=== PATIENT | female | born 1950 | race Caucasian/White ===

== ENCOUNTER 2020-01-25 13:18 | Emergency (ER) | payer MEDICARE, SELFPAY ==
--- NOTE | ~2020-01-25 | XR_ITS ---
XR shoulder RT min 2V 01/25/2020 14:13 Indication: Right shoulder pain. No acute injury. Procedure: 5 views right shoulder Comparison: No prior studies for comparison. Findings: There is moderate osteoarthritis of the glenohumeral joint. No acute fracture or traumatic malalignment. Surrounding osseous structures and soft tissues are unremarkable. Impression: 1: Moderate right glenohumeral joint osteoarthritis. Reviewed, dictated and finalized at location A. Impression: 1: Moderate right glenohumeral joint osteoarthritis.
[2020-01-25 13:27] VITALS: BP 144/82; PULSE 63; RESP 16; TEMP 36.7; O2SAT 96
--- NOTE | 2020-01-25 14:29 | ED.GENADULT ---
HPI - General Adult General Chief complaint: Extremity Injury, Upper Stated complaint: right shoulder pain Time Seen by Provider: 01/25/20 14:29 Source: patient and RN notes reviewed Mode of arrival: ambulatory Limitations: no limitations History of Present Illness HPI narrative: 69-year-old female presents with complaints of right shoulder pain and intermittent swelling for the past 1.5 weeks. Aleve last on 01/23/20 and Aspirin last on 2 days ago. Denies taking Ibuprofen. Pain intermittently radiates into RT lower neck, none at this time. 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 Denies numbness or tingling. No known injury. History of arthritis and receiving steroid injections into shoulder for relief. Hurts with movement of shoulder. No loss of mobility. Exacerbating factor is movement. Relieving factor is rest and pain medication at times. The dominant hand is the RIGHT HAND. Redness to RT arm which has increased over the past 24 hours. Skin irritation and itching without drainage or burning. Remains active. The patient reports she have not been diagnosed with COVID-19. The patient reports she is not waiting for the results of a COVID-19 lab test. The patient reports she do not have fever, chills, weakness, or fatigue. The patient reports she do not have a new or worsening cough or shortness of breath. Denies chest pain. The patient reports she do not have any rhinorrhea, congestion, sore throat, loss of taste, nausea, vomiting, abdominal pain, and diarrhea. Tolerating po intake well. Denies recent traveling. Denies concerns for COVID-19 or exposures been home with limited outdoor exposure except for essential household needs, work, and return home. At this time, patient is not suspected of having COVID-19. Some parts of this dictation were generated by voice recognition software and may contain typographical and/or grammatical inaccuracies. Related Data Home Medications Medication Instructions Recorded Confirmed fluoxetine 40 mg PO DAILY 01/25/20 01/25/20 hydrocodone-acetaminophen 1 tab/kg PO BID PRN 01/25/20 01/25/20 pravastatin 20 mg PO DAILY 01/25/20 01/25/20 Allergies Allergy/AdvReac Type Severity Reaction Status Date / Time No Known Allergies Allergy Verified 01/25/20 14:42 Review of Systems Review of Systems: Narrative: CONSTITUTIONAL: Denies fever, chills, sweats. EYES: Denies visual changes, redness, discharge. ENT: Denies rhinorrhea, congestion, sore throat, otalgia. CARDIOVASCULAR: Denies chest pain, palpitations, edema. RESPIRATORY: Denies dyspnea, wheezing, cough. GASTROINTESTINAL: Denies abdominal pain, nausea, vomiting, diarrhea. GENITOURINARY: Denies dysuria, hematuria, abnormal discharge. SKIN: Denies rash or drainage. Complains of skin irritation, redness, itching. MUSCULOSKELETAL: Denies acute back pain or myalgia. Complains of RT shoulder pain and swelling. NEUROLOGIC: Denies numbness or focal weakness. PSYCHIATRIC: Denies anxiety or depression. All other systems reviewed & are unremarkable except as noted in HPI and below. [facility] Past Medical History Medical History (Updated 01/26/20 @ 00:00 by Background Daemon) Anxiety Arm fracture, right Arthritis Back pain Depression Heel fracture Hypercholesteremia Interstitial cystitis Skin cancer (melanoma) Surgical History Surgical History (Updated 01/25/20 @ 14:46 by LANCE Mackenzie) History of dilation and curettage History of knee surgery Family History Family History (Updated 01/25/20 @ 14:47 by LANCE Mackenzie) Father Heart disease Diabetes mellitus Mother Alive and well Social History Social History (Updated 01/25/20 @ 14:48 by LANCE Mackenzie) Smoking status: Never smoker Tobacco type: cigarettes Second hand tobacco smoke exposure: No Alcohol intake: former Alcohol use details: stopped 2005 Subst
[2020-01-25] MEDS: KETOROLAC (*BKC) 60 MG/2 ML VIAL IM (14:47)
== END 2020-01-25 15:06 | disposition home or self-care (01) ==
PROVIDERS: Emergency Provider Nurse Practitioner Family; PCP Internal Medicine
DX: M25.511 Pain in right shoulder (principal); L03.113 Cellulitis of right upper limb; Z85.828 Personal history of other malignant neoplasm of skin
CPT/HCPCS: 73030; 96372; 99213; G0463; J1885

== ENCOUNTER 2020-06-27 11:14 | Emergency (ER) | payer MEDICARE, SELFPAY ==
--- NOTE | ~2020-06-27 | XR_ITS ---
XR chest 2V DATE: 06/27/2020 11:51 INDICATION: Pain under right breast. Cough. TECHNIQUE: 2 views COMPARISON: None FINDINGS: Heart size is borderline. No hilar or mediastinal enlargement. Prominent right cardiophreni c fat pad. Minimal bilateral apical capping. No pulmonary infiltrate or consolidation, pleural effusion or pulmo nary vascular congestion or pneumothorax is detected. Diffuse idiopathic skeletal hyperostosis of the thoracic spine. Degenerative spurring of the lumbar s pine. Diffuse osteopenia. IMPRESSION: No active pulmonary disease Reviewed, dictated and finalized at location A. VANCE COORDINATOR IMPRESSION: No active pulmonary disease
--- NOTE | 2020-06-27 11:20 | ED.GENADULT ---
HPI - General Adult General Chief complaint: Chest Pain Stated complaint: Chest/Breast Pain that's Radiating Time Seen by Provider: 06/27/20 11:20 Source: patient Mode of arrival: ambulatory Limitations: no limitations History of Present Illness HPI narrative: 70-year-old female patient presents to the [facility] with complaints of left-sided chest pain that goes from underneath the left breast that radiates up to the left neck. Patient states that she has had this pain now for about 4 days and is pretty constant. Patient states that the pain did get worse last night which is why she came in today. Patient rates her pain at this time 6 out of 10. Patient does admit to a little bit of shortness of breath as well. Patient states she has been struggling with some type of upper respiratory infection since the end of May. Patient states she had the symptoms for about a week and was tested for Covid with the PCR and came back negative. Patient saw her primary doctor on June was given a Z-Alex. Patient states it did help her cough a little bit and states it did help her symptoms a little bit but she never felt fully better. Patient states that she did not actually see her doctor they just prescribed her something over the phone. Patient states that she also was given some Tessalon Perles. Patient states her cough has improved. Patient states she is also had a little bit of diarrhea but denies any abdominal pain, nausea or vomiting. Patient states she did take a Carlito aspirin last night for her pain but denies take anything else for her pain today Related Data Home Medications Medication Instructions Recorded Confirmed fluoxetine 40 mg PO DAILY 01/25/20 01/25/20 hydrocodone-acetaminophen 1 tab/kg PO BID PRN 01/25/20 01/25/20 pravastatin 20 mg PO DAILY 01/25/20 01/25/20 Allergies Allergy/AdvReac Type Severity Reaction Status Date / Time No Known Allergies Allergy Verified 06/27/20 11:44 Review of Systems Review of Systems: Narrative: CONSTITUTIONAL: Denies fever, chills, or sweats. EYES: Denies visual changes, redness, or discharge. ENT: Denies rhinorrhea, congestion, sore throat, or otalgia. CARDIOVASCULAR: Positive left-sided chest pain that radiates to the left lateral neck, denies palpitations, or edema. RESPIRATORY: Positive cough with dyspnea. GASTROINTESTINAL: Denies abdominal pain, nausea, vomiting, positive diarrhea. GENITOURINARY: Denies dysuria or hematuria. SKIN: Denies rash or itching. MUSCULOSKELETAL: Denies back pain, joint pain, or myalgia. NEUROLOGIC: Denies headache, numbness, or weakness. PSYCHIATRIC: Denies anxiety or depression. [facility] Past Medical History Medical History (Updated 06/27/20 @ 12:04 by LANCE Barrientos) Anxiety Arm fracture, right Arthritis Back pain Depression Heel fracture Hypercholesteremia Interstitial cystitis Skin cancer (melanoma) Surgical History Surgical History (Updated 06/27/20 @ 11:30 by LANCE Barrientos) H/O abdominal surgery bladder removed History of dilation and curettage History of knee surgery Family History Family History Father Heart disease Diabetes mellitus Mother Alive and well Social History Social History Smoking status: Never smoker Tobacco type: cigarettes Second hand tobacco smoke exposure: No Alcohol intake: former Substance use: never Gender identity (if verbalized by the patient): Female Comments At the time of my signature I agree with nursing past medical history, surgical, social, and family history. There is no relevant family history pertinent to the presenting complaint. Exam Narrative: Exam Narrative: GENERAL: Well-appearing, well-nourished, and in no acute distress. HEAD: Normocephalic, atraumatic. EYES: PERRLA and EOMI. ENT: Nares clear, no rhinorrhea or epistaxis. Mucous
[2020-06-27 11:27] VITALS: BP 170/87; PULSE 93; RESP 18; TEMP 36.3; O2SAT 100
--- NOTE | 2020-06-27 11:34 | ECG_ITS ---
Measurements Intervals [place] [address] Rate: 61 P: 5 ND: 168 QRS: 38 QRSD: 93 T: 78 QT: 415 QTc: 418 Interpretive Statements SINUS RHYTHM BORDERLINE ST-T WAVE ABNORMALITY- ANTEROLAT/HIGH LAT LEADS BASELINE ARTIFACT- I, II, III, AVR, AVF BORDERLINE ECG Electronically Signed On 06-27-2020 13:02:12 WET MACHINE TENDER by Bernard Bentley D.O.
== END 2020-06-27 12:09 | disposition home or self-care (01) ==
PROVIDERS: Emergency Provider Nurse Practitioner Family; PCP Internal Medicine
DX: R09.1 Pleurisy (principal); Z20.822 Contact with and (suspected) exposure to COVID-19; M19.90 Unspecified osteoarthritis, unspecified site; E78.00 Pure hypercholesterolemia, unspecified; F32.9 Major depressive disorder, single episode, unspecified; Z85.820 Personal history of malignant melanoma of skin
CPT/HCPCS: 71046; 87081; 87426; 87880; 93005; 99213; C9803; G0463

== ENCOUNTER 2023-08-23 10:11 | Outpatient (CLI) | payer MEDICARE, MEDICAID, SELFPAY ==
--- NOTE | ~2023-08-23 | XR_ITS ---
Lumbosacral Spine: AP and lateral views Clinical History: Pain Findings: The normal lordotic curve is maintained. No fracture or subluxation evident. There is sever e facet arthropathy throughout the lumbar spine. There is moderate to severe degenerative disc narrow ing throughout the lumbar spine. No instability evident on flexion or extension. The sacroiliac joint s are normally outlined. Impression: Advanced degenerative spondylosis of the lumbar spine. Reviewed, dictated and finalized at location M. Impression: Advanced degenerative spondylosis of the lumbar spine.
== END 2023-08-23 10:12 | disposition home or self-care (01) ==
PROVIDERS: PCP Internal Medicine; Visit Provider Neurological Surgery
DX: M47.816 Spondylosis without myelopathy or radiculopathy, lumbar region (principal)
CPT/HCPCS: 72110

== ENCOUNTER 2023-09-20 12:22 | Outpatient (CLI) | payer MEDICARE, MEDICAID, SELFPAY ==
--- NOTE | 2023-09-20 12:43 | ECG_ITS ---
SEE SCANNED COPY FOR CONFIRMED REPORT MTDD
[2023-09-20 13:32] LABS: Color Urine Yellow (Yellow)
[2023-09-20 13:33] LABS: Add Urine Microscopic? YES; Appearance Urine Cloudy (Clear); Bilirubin Urine Negative (Negative); Blood Urine 1+ (Negative); Glucose Urine UA Negative (Negative); Ketones Urine Negative (Negative); Leukocyte Esterase Ur Negative LEU/UL (Negative); Nitrate Urine Negative (Negative); Protein Urine Negative (Negative); Urobilinogen Urine 0.2 mg/dL (0.2-1.0); pH Urine 6.5 (5.0-8.0)
[2023-09-20 13:39] LABS: Anion Gap 6 mmol/L (4-12); Blood Urea Nitrogen 18 mg/dL (7-17); Calcium 9.6 mg/dL (8.4-10.2); Carbon Dioxide 27 mmol/L (22-30); Chloride 107 mmol/L (98-107); Estimated Glomerular Filt Rate > 60; Glucose 83 mg/dL (65-110); Potassium 3.8 mmol/L (3.4-5.0); Prothrombin Time 13.3 Seconds (11.1-14.7); Sodium 140 mmol/L (137-145)
[2023-09-20 13:40] LABS: Partial Thromboplastin Time 30.5 Seconds (22.3-36.8)
[2023-09-20 13:45] LABS: Mucus Urine Present /lpf; Squamous Epithelial Cell Urine Few /hpf (Few); WBC Clumps Urine Present /hpf; WBC Urine 21-30 /hpf (0-3)
[2023-09-20 13:50] LABS: Hematocrit 40.9 % (37.0-47.0); Hemoglobin 12.7 g/dL (12.0-15.0); Mean Corpuscular HGB Conc 31.1 g/dl (32-36); Mean Corpuscular Volume 96.5 fl (80-100); Mean Platelet Volume 10.3 fl (7.4-10.4); Platelet Count Result 203 k/mm3 (150-375); Red Blood Count 4.24 M/mm3 (4.2-5.4); White Blood Count 5.8 K/mm3 (4.5-10.0)
== END 2023-09-20 12:23 | disposition home or self-care (01) ==
LOC: ANHSURGERY 12:29
PROVIDERS: PCP Internal Medicine; Visit Provider Neurological Surgery
DX: Z01.818 Encounter for other preprocedural examination (principal); M54.16 Radiculopathy, lumbar region; E78.00 Pure hypercholesterolemia, unspecified
CPT/HCPCS: 36415; 80048; 81001; 85027; 85610; 85730; 87086; 87088; 93005

== ENCOUNTER 2023-09-26 00:47 | Day surgery (SDC) | payer MEDICARE, MEDICAID, SELFPAY ==
--- NOTE | 2023-09-17 09:41 | PC.NURSE ---
Report to the Outpatient Waiting Room, entrance under the green pavilion located off [facility], at time __7:30 AM on date ___09/26/23____. Planned Procedure Time: _9:30 AM . Time changes happen often and if your time is changed the preop area will call you the afternoon before. - You and your visitor will be asked to self-screen and do not enter if you have any COVID symptoms. - A mask is optional within the hospital at this time. Patients may have clear liquids (water, carbonated beverages, clear teas, apple juice) until 3 hours prior to surgery( 6:30 AM) with a maximum of 20 ounces. - No food from midnight until time of surgery - Infants may have breast milk until 4 hours before surgery, infant formula 6 hours prior to surgery. - Children will be allowed to drink immediately following surgery. If applicable, please bring a bottle or sippy cup to assist with drinking. Juice, water, soda, and popsicles are readily available. For infants on formula, please bring formula the day of surgery. Pacifiers are allowed. Take the following medications with a SIP of water the morning of surgery: __BUPROPION,FLUOXETINE AND HYDROCODONE IF NEEDED FOR PAIN DO NOT STOP ANY OF YOUR OTHER PRESCRIPTION MEDICATIONS PRIOR TO SURGERY ?EXCEPT THE FOLLOWING Medications to discontinue per physician ____ALL VITAMINS 3 DAYS PRE OP .LAST DOSE 09/22/23 Please no make-up, nail paraguayan, hairspray, perfume, deodorant, or body powder the day of surgery. No jewelry (including any body piercings) or valuables the day of surgery, leave them at home. Please take a shower or bath the night before, or the morning of, surgery with an antibacterial soap. Wear comfortable, loose fitting clothing. Children are encouraged to wear pajamas. - Jewelry must be removed prior to entering the operating room. Rings and piercings that are not removed may be cut off. - The hospital will not accept responsibility for valuables. - Please leave all valuables, including medications, at home the day of surgery. If you are going home after surgery, a licensed fleet driver must drive you home. - NO public transportation without another adult if you receive anesthesia. - We recommend that an adult stay with you for 24 hours following discharge. - We also recommend that you do not drive, make important decision, drink alcoholic beverages, or take any drugs that were not prescribed by your health care provider for at least 24 hours after your discharge time. Follow any additional instructions given to you from your surgeon. If you or anyone in your household have experienced Covid symptoms in the past week, please notify your surgeon or the nurse liaison at the phone number below for possible testing. Telephone instructions given to ___PATIENT and asked if any additional questions and then verbalized understanding. Patient advised to call surgeon office or pre surgery nurse liaison [phone] if any additional questions.
[2023-09-17 09:58] VITALS: BMI 35.8
[2023-09-26] VITALS (17 sets, daily range): BP systolic 108–162; BP diastolic 48–96; PULSE 66–90; RESP 11–18; TEMP 36.1–36.2; O2SAT 91–100; BMI 35.2
--- NOTE | ~2023-09-26 | XR_ITS ---
EXAMINATION: XR fluoroscopy no charge DATE: 09/26/2023 11:56 INDICATION: Lumbar laminectomy. TECHNIQUE: 2 intraoperative fluoroscopic views of lumbar spine were obtained. I was not present. Fluo roscopy exposure time was 9 seconds. COMPARISON: Lumbar spine radiographs 08/23/2023. FINDINGS: There is severe lumbar spondylosis. An instrument overlies the posterior elements at L5-S1. IMPRESSION: 1. Severe lumbar spondylosis. Reviewed, dictated and finalized at location E.
[2023-09-26] MEDS: LACTATED RINGERS 1,000 ML 30 ML IV CONT ×2 (06:50→12:11)
--- NOTE | 2023-09-26 07:47 | WPDANESEPPF ---
Anes - Initial Pre Proc Eval Procedure: Operation Date: 09/26/23 08:30 Proposed Procedures p L3-L4, L4- L5, L5- S1 Lumbar Laminectomy - Senait Atkins MD Date/Time: 09/26/23 07:47 Surgeon: Senait Atkins MD Pre Op Diagnosis: lumbar radiculopathy Patient Data Age: 73 Gender: F Height: 1.65 m Weight: 96.1 kg Last Vital Signs Temp 97.2 F L 09/26/23 06:10 Pulse 66 09/26/23 06:10 Resp 16 09/26/23 06:10 BP 162/84 H 09/26/23 06:10 Pulse Ox 95 09/26/23 06:10 O2 Del Method Room Air 09/26/23 06:10 Allergies Allergy/AdvReac Type Severity Reaction Status Date / Time No Known Allergies Allergy Verified 09/26/23 07:08 Home Medications Medication Instructions Recorded Confirmed Type fluoxetine 40 mg capsule 40 mg PO DAILY 01/25/20 09/26/23 History hydrocodone 5 mg-acetaminophen 325 1 tablet PO BID PRN Pain 01/25/20 09/17/23 History mg tablet pravastatin 20 mg tablet 20 mg PO DAILY 01/25/20 09/17/23 History bupropion HCl 150 mg 24 hr tablet, 150 mg PO DAILY 02/22/23 09/17/23 History extended release buspirone 10 mg tablet 10 mg PO BID PRN DEPRESSION 02/22/23 09/26/23 History oxybutynin chloride 5 mg tablet 5 mg PO BID 02/22/23 09/17/23 History acetaminophen 500 mg capsule 1,000 mg PO Q6H PRN Pain 09/17/23 09/17/23 History cholecalciferol (vitamin D3) 125 125 mcg PO DAILY 09/17/23 09/26/23 History mcg (5,000 unit) tablet Patient hx anesthesia problems: none Family hx anesthesia problems: none Results Review: All pre-operative results and documents have been reviewed as part of the pre-operative evaluation. [facility] Past Medical History Medical History Anxiety Arm fracture, right Arthritis Back pain Depression Heel fracture Hypercholesteremia Interstitial cystitis Skin cancer (melanoma) Surgical History Surgical History H/O abdominal surgery bladder removed History of dilation and curettage History of knee surgery Family History Family History Father Heart disease Diabetes mellitus Malignant neoplasm of prostate Bladder cancer Other Depression Hypertension TIA (transient ischemic attack) Social History Social History Smoking status: Never smoker Tobacco type: cigarettes Second hand tobacco smoke exposure: No Alcohol intake: former Alcohol use details: stopped 2005 Substance use: never Do You Feel Safe in your Home?: Yes Lack of Transportation: No Lack of Food: Never True Current Housing: I Have Housing Concerned About Future Housing: No Difficulty Paying Gas/Electric Bills: No Difficulty Paying for Meds: No Currently Unemployed: YES Education: High School Diploma/GED Difficulty w/ Childcare or Family Care: No Living arrangements: alone Occupation/Education: occupation Gender identity (if verbalized by the patient): Female Spiritual care concerns: No Anes - Eval Final PreProcedure Day of Procedure 09/26/23 07:47 Patient weight: obese Heart: regular rate and rhythm Lungs: clear to auscultation Airway: Mallampati scale class III Neurological: alert and oriented Last oral intake: >/= 8 hours ASA classification: III (have glide scope in the room) Emergent: no Anesthetic plan: proceed Anesthesia type and monitoring: general ETT and standard monitoring Results Review: All pre-operative results and documents have been reviewed as part of the pre-operative evaluation. Informed Consent: The patient's anesthetic plan and its attendant risks and benefits were discussed with the patient/family/POA. Questions were solicited and answers provided to the satisfaction of the patient/family/POA.
--- NOTE | 2023-09-26 08:16 | WPDHPUPDATE1 ---
History and Physical Update Update Date/Time: 09/26/23 08:16 History and Physical has been reviewed, including an updated exam of the patient. There are NO changes in the patient's condition. Risks, benefits, and alternatives have been discussed and questions answered. Patient agrees to proceed with procedure.
--- NOTE | 2023-09-26 08:16 | PM.IMHP ---
H&P: HPI History of Present Illness Date/Time: 09/26/23 08:16 Chief Complaint: neurogenic claudication Narrative: From 02/22: Ms. Dubose is a 72-year-old female with history of interstitial cystitis, osteoarthritis, depression who was referred by [facility] for evaluation of low back pain.? The patient reports a very long history of low back pain starting when she gave to her 2nd child over 40 years ago.? She has pain that radiates to the right hip.? Pain is constant and worsens with sitting, lifting, bending, or doing chores like vacuuming.? She denies any radicular pain or paresthesias into the legs.? She does report some issues with balance. ? she currently takes hydrocodone for pain.? She had physical therapy last in 2018.? She has been following at [facility] and has had a number of injections including right L4-5 transforaminal injection, bilateral L5 transforaminal injections, midline L5-S1 epidural steroid injection, and a right SI joint injection, all varying degrees improvement.? [facility] is discussing the possibility of medial branch blocks next, and the patient has an appointment in a few weeks to discuss this. She notably had a cystectomy in 1998 for interstitial cystitis.? She reports some issues with balance for which she has been using a cane.? She reports having an MRI cervical spine within the last few years due to concern for her balance and hyperreflexia.? She does not know the results of this study but was similarly not referred to anyone for evaluation of her neck. From 07/18: ? Since her last visit, she did 6 weeks of physical therapy which she did not find particularly helpful.? She had 2 medial branch blocks which gave her significant improvement in her back pain temporarily, but she felt that the ablation actually worsened her pain.? Since I saw her last, she has developed a radicular pain into the left hip down the front of the leg to the midcalf.? She feels like her left leg is going to give out when walking.? She has paresthesias in a similar distribution.? She continues to have pain on the right side her back.? She has started walking with a cane due to the issues with her leg.? She notably is taking hydrocodone 5 mg twice a day at this point for her pain. She saw her orthopedist recently for her left hip and knee who obtained xrays and ultimately did not feel that these were the sources of her problem. From 08/22: ? She denies any significant changes since her last visit.? She continues to have fairly significant pain radiating into the hip and down the front of the leg to the ankle. Review of Systems Review of Systems: All systems reviewed & are unremarkable except as noted in HPI and below PMFSH Past Medical History Medical History Anxiety Arm fracture, right Arthritis Back pain Depression Heel fracture Hypercholesteremia Interstitial cystitis Skin cancer (melanoma) Surgical History Surgical History H/O abdominal surgery bladder removed History of dilation and curettage History of knee surgery Family History Family History Father Heart disease Diabetes mellitus Malignant neoplasm of prostate Bladder cancer Other Depression Hypertension TIA (transient ischemic attack) Social History Social History Smoking status: Never smoker Tobacco type: cigarettes Second hand tobacco smoke exposure: No Alcohol intake: former Alcohol use details: stopped 2005 Substance use: never Do You Feel Safe in your Home?: Yes Lack of Transportation: No Lack of Food: Never True Current Housing: I Have Housing Concerned About Future Housing: No Difficulty Paying Gas/Electric Bills: No Difficulty Paying for Meds: No Currently Unemployed: YES Education: High School Diplo
--- NOTE | 2023-09-26 08:16 | WPDURCON ---
Urology Consult Note HPI Date Seen: 09/26/23 Requesting Physician: Senait Atkins MD Primary Care Provider: Prachi Hunt, Consult Narrative Narrative: Tova Dubose is a 73 year old female who is scheduled for outpatient surgery today. Received call from pre-op regarding need for mtz catheterization. Patient has history of interstitial cystitis and underwent sigmoid augmentation cystoplasty in 1998. Reviewed patients office visit notes and surgical history with Dr. Swift. With this information, it is okay to proceed with mtz catheter placement for scheduled surgery. Informed nursing staff. Please call with any questions or concerns. FORMERLY [facility], [facility] Past Medical History Medical History (Reviewed 08/23/23 @ 09:21 by Roberta Flores [facility]) Anxiety Arm fracture, right Arthritis Back pain Depression Heel fracture Hypercholesteremia Interstitial cystitis Skin cancer (melanoma) Surgical History Surgical History H/O abdominal surgery bladder removed History of dilation and curettage History of knee surgery Family History Family History Father Heart disease Diabetes mellitus Malignant neoplasm of prostate Bladder cancer Other Depression Hypertension TIA (transient ischemic attack) Social History Social History (Reviewed 08/23/23 @ 09:21 by Roberta Flores [facility]) Smoking status: Never smoker Tobacco type: cigarettes Second hand tobacco smoke exposure: No Alcohol intake: former Alcohol use details: stopped 2005 Substance use: never Do You Feel Safe in your Home?: Yes Lack of Transportation: No Lack of Food: Never True Current Housing: I Have Housing Concerned About Future Housing: No Difficulty Paying Gas/Electric Bills: No Difficulty Paying for Meds: No Currently Unemployed: YES Education: High School Diploma/GED Difficulty w/ Childcare or Family Care: No Living arrangements: alone Occupation/Education: occupation Gender identity (if verbalized by the patient): Female Spiritual care concerns: No Meds Home Medications and Allergies Home Medications Medication Instructions Recorded Confirmed Type fluoxetine 40 mg capsule 40 mg PO DAILY 01/25/20 09/26/23 History hydrocodone 5 mg-acetaminophen 325 1 tablet PO BID PRN Pain 01/25/20 09/17/23 History mg tablet pravastatin 20 mg tablet 20 mg PO DAILY 01/25/20 09/17/23 History bupropion HCl 150 mg 24 hr tablet, 150 mg PO DAILY 02/22/23 09/17/23 History extended release buspirone 10 mg tablet 10 mg PO BID PRN DEPRESSION 02/22/23 09/26/23 History oxybutynin chloride 5 mg tablet 5 mg PO BID 02/22/23 09/17/23 History acetaminophen 500 mg capsule 1,000 mg PO Q6H PRN Pain 09/17/23 09/17/23 History cholecalciferol (vitamin D3) 125 125 mcg PO DAILY 09/17/23 09/26/23 History mcg (5,000 unit) tablet Allergies Allergy/AdvReac Type Severity Reaction Status Date / Time No Known Allergies Allergy Verified 09/26/23 07:08 Vital Signs Vital Signs - 24 hr 09/26/23 06:10 Temperature 97.2 F L Pulse Rate 66 Respiratory Rate 16 Blood Pressure 162/84 H Pulse Oximetry 95 Oxygen Delivery Room Air
[2023-09-26] MEDS: ceFAZolin 2 GM/D5W 50 ML 2 GM/50 ML BAG IVPB ×2 (08:34→17:41)
[2023-09-26] MEDS: BUPIVACAINE/EPINEPHRINE 0.5% 10 ML VIAL 30 ML INFILTRATE (09:09)
--- NOTE | 2023-09-26 10:27 | SUR.OPER ---
patient position maintained. Reyes draining yellow clear u/a.
--- NOTE | 2023-09-26 11:33 | SUR.OPER ---
EBL 300ML
--- NOTE | 2023-09-26 12:11 | P.OPB_ITS ---
Procedure Note - Brief Procedure Note - Brief Date of procedure: 09/26/23 lumbar radiculopathy Post-op diagnosis: Same Procedure performed: L3-4, L4-5, L5-S1 laminectomies Use of microscope C-arm for fluoroscopy Surgeon: Senait Atkins MD Racebook Writer: Raimundo Anesthesia: YANDEL Findings: Successful laminectomies without complication Estimated blood loss (mL): 300 Drains: Yes Packing: No Pathology: None sent Complications: None Condition: Stable Disposition: PACU
--- NOTE | 2023-09-26 12:18 | SUR.OPER ---
bilateral knees with 2 circular redness +caitlin to PACU and mild pinkness bilateral L Presto RN
--- NOTE | 2023-09-26 12:19 | W.PM.PROC2 ---
Procedure Note - Detailed Date of Procedure 09/26/23 Pre-op Diagnosis lumbar radiculopathy Lumbar stenosis Post-op Diagnosis Same Procedure Performed 1. L3-4, L4-5, and L5-S1 laminectomies, medial facetectomies, foraminotomies 2. Use of microscope for microsurgical dissection 3. Use of C-arm for fluoroscopy Surgeon Senait Atkins MD Sheet Metal Worker Supervisor Raimundo Anesthesia General Indications Ms. Dubose is a 73-year-old female with 40+ year history axial back pain with radiation into the right hip who has more recently developed radicular pain into left leg down the front of the leg to the midcalf with paresthesias in a similar distribution and feeling that her left leg will give out when ambulating.? This has been resistant to recent physical therapy, epidural steroid injections, and radiofrequency ablations.? On physical exam, she does have a positive straight leg raise on the left side.?? she returns today with an updated MRI lumbar spine that shows multilevel degenerative changes with a grade 1 retrolisthesis of L3 on L4 and L5 on S1 with severe central stenosis at L3-4, L4-5, and L5-S1.?She had dynamic lumbar xrays that do not show instability on flexion/extension. I have recommended proceeding with surgery in the form of L3-4, L4-5, and L5-S1 laminectomies. Risks were discussed with the patient including bleeding, pain, infection, CSF leak, weakness, paresthesias, nerve damage, failure to relieve symptoms, and anesthetic complications were discussed. The patient provided written informed consent to proceed. Description of Procedure The patient was brought to the operating room, and general anesthesia was induced. The patient was placed prone on the open Radames table, and all pressure points were padded. Compression devices were placed on the patient's calves. The skin was cleaned with alcohol. The C-arm was brought onto the field to localize the appropriate disc space and assist with incisional planning. The area was prepped and draped in usual sterile fashion. A time out was conducted, and pre-operative antibiotics were administered. Local anesthesia was injected into the planned incision. A midline skin incision was made with a 10-blade scalpel, and dissection was carried down with the monopolar cautery to open the fascia. Once the spinous processes were located, a subperiosteal dissection was performed to expose the laminae bilaterally. A self-retaining retractor was placed. The C-arm was brought in to confirm the correct level. A Leksell rongeur was used to remove the spinous processes and posterior elements. The microscope was draped and brought into the field for microsurgical dissection. The high-speed drill was used to thin the laminae to the ligamentum flavum. A curved currette was used to separate the ligament from the bone. Kerrison rongeurs were then used to remove remaining laminae and ligamentum flavum. Medial facetectomies and foraminotomies were performed at L3-4, L4-5, and L5-S1 with the kerrison as well. The facet joints were undercut to widen the spinal canal. The Kerrison was then passed into the foraminae to ensure they were open. We took special care to ensure the foraminae on the left side were open given that this is where she felt her pain. Hemostasis was ensured, and the area was copiously irrigated. No evidence of CSF leak was noted. A hemovac drain was placed and tunneled inferiorly. The muscle was loosely approximated with 0-Vicryl. The fascia was closed with 0-Vicryl in an interrupted fashion. The soft tissue was again copiously irrigated. The dermis was closed with 2-0 and 3-0 interrupted Vicryl. The skin was closed with 3-0 running nylon. The drain was secured with a 3-0 nylon as well. Sterile dressings were applied. The patient was returned supine on the stretcher, extubated, and transferred to PACU without incident. Surgical codes: 37430, 67011w3, 74966 Estimated Blood Loss 300 Drains Yes Packing No Pathology None sent Complications
[2023-09-26] MEDS: fentaNYL CITRATE INJ (*CRX) 100 MCG/2 ML VIAL 25 MCG IV PUSH ×6 (12:25→13:17)
[2023-09-26] MEDS: oxyCODONE HCL (*CRX) 5 MG TAB IR 10 MG PO ×2 (14:33→20:53)
--- NOTE | 2023-09-26 14:41 | ADMGEN ---
This patient, Tova Dubose, was admitted to [facility] Surg Room 310-01. Patient/family oriented to hospital policies and general routines including ID bracelet, bed and alarms, visiting hours, pain management, procedures, bathroom and other care routines, personal items, smoking policy, room service/diet, and visiting hours. Information on how to activate the Rapid Response Team has been discussed. Patient/Family are encouraged to report perceived risks to care and to ask questions if they do not understand what they are told or what they should do.
[2023-09-26] MEDS: ACETAMINOPHEN 500 MG TABLET 1000 MG PO ×2 (15:36→20:52)
[2023-09-26] MEDS: oxyBUTYnin CHLORIDE 5 MG TABLET PO (18:09)
[2023-09-26] MEDS: CYCLOBENZAPRINE HCL 10 MG TABLET PO (20:52)
[2023-09-26] MEDS: DOCUSATE SODIUM 100 MG CAPSULE PO (20:52)
[2023-09-27] MEDS: oxyCODONE HCL (*CRX) 5 MG TAB IR 10 MG PO ×3 (01:59→15:33)
[2023-09-27] MEDS: ceFAZolin 2 GM/D5W 50 ML 2 GM/50 ML BAG IVPB ×3 (02:00→15:34)
[2023-09-27] MEDS: SODIUM CHLORIDE 0.9% IV 100 ML 20 ML (02:00)
[2023-09-27] MEDS: ACETAMINOPHEN 500 MG TABLET 1000 MG PO ×3 (02:00→15:27)
[2023-09-27 02:59] VITALS: BP 143/72; PULSE 70; RESP 14; TEMP 36.2; O2SAT 94
[2023-09-27 08:00] VITALS: BP 133/62; PULSE 70; RESP 18; TEMP 36.3; O2SAT 93
[2023-09-27] MEDS: DOCUSATE SODIUM 100 MG CAPSULE PO (09:00)
[2023-09-27] MEDS: buPROPion HCL XL (24 HR) 150 MG TABCR PO (09:00)
[2023-09-27] MEDS: oxyBUTYnin CHLORIDE 5 MG TABLET PO ×2 (09:00→15:27)
[2023-09-27] MEDS: FLUoxetine HCL 20 MG CAPSULE 40 MG PO (09:00)
[2023-09-27] MEDS: PRAVASTATIN SODIUM 20 MG TABLET PO (09:01)
[2023-09-27 12:00] VITALS: BP 110/47; PULSE 58; RESP 16; TEMP 36.1; O2SAT 91
[2023-09-27 16:00] VITALS: BP 130/52; PULSE 67; RESP 16; TEMP 36.1; O2SAT 100
--- NOTE | 2023-09-27 17:48 | WPDNEUROSGPN ---
Progress Note: A&P Assessment and Plan (1) Status post lumbar laminectomy: Code(s): Z98.890 - Other specified postprocedural states Status: Acute Plan -Discharge home today -Wound care and activity precautions reviewed -Hemovac drain removed at bedside -Follow up in 2 weeks for suture removal Subjective Date/time seen: 09/27/23 17:48 Interval history: Doing very well with some back pain when flat but resolved leg pain and paresthesias. Ambulating with therapy. Voiding independently. Toleratin PO. Review of Systems Review of Systems: All systems reviewed & are unremarkable except as noted in HPI and below Exam Narrative: AOx4 Dressing c/d/i Full strength in lower extremities Sensation intact to light touch Ambulating independently Objective Data Vital Signs Vital Signs: Vital Signs - 24 hr 09/26/23 19:12 09/26/23 23:07 09/27/23 02:59 Temperature 96.9 F L 97.1 F L 97.1 F L Pulse Rate 67 67 70 Respiratory Rate 13 13 14 Blood Pressure 108/48 L 115/50 L 143/72 H Pulse Oximetry 91 91 94 Oxygen Delivery 09/26/23 20:00 09/27/23 07:49 09/27/23 08:00 Temperature 97.3 F L Pulse Rate 70 70 Respiratory Rate 14 18 Blood Pressure 133/62 Pulse Oximetry 94 93 Oxygen Delivery Room Air Room Air 09/27/23 12:00 09/27/23 08:00 09/27/23 16:00 Temperature 97.0 F L 96.9 F L Pulse Rate 58 L 67 Respiratory Rate 16 16 Blood Pressure 110/47 L 130/52 L Pulse Oximetry 91 100 Oxygen Delivery Room Air Intake/Output Intake/Output: Intake & Output 09/24/23 09/25/23 09/26/23 09/27/23 23:59 23:59 23:59 23:59 Intake Total 840 1380 Output Total 100 Balance 840 1280 Meds/Results Medications: Active Medications Generic Name Dose Route Start Last Admin Trade Name Freq PRN Reason Stop Dose Admin Acetaminophen 1,000 mg 09/26/23 15:00 09/27/23 15:27 Acetaminophen 500 Mg Tablet PO 1,000 mg Q6H YOLI Administration Al Hydrox/Mg Hydrox/Simethicone 20 ml 09/26/23 12:12 Mag Hydrox/Al Hydrox/Simeth 30 Ml Udc PO Q4H PRN Indigestion/Heartburn Bisacodyl 10 mg 09/26/23 12:12 Bisacodyl 10 Mg Suppository RECTAL DAILY PRN Constipation Bupropion HCl 150 mg 09/27/23 09:00 09/27/23 09:00 Bupropion Hcl Xl (24 Hr) 150 Mg Tabcr PO 150 mg DAILY YOLI Administration Buspirone HCl 10 mg 09/26/23 12:15 Buspirone Hcl 10 Mg Tablet PO BID PRN DEPRESSION Cyclobenzaprine HCl 10 mg 09/26/23 12:12 09/26/23 20:52 Cyclobenzaprine Hcl 10 Mg Tablet PO 10 mg TID PRN Administration Muscle Spasms Docusate Sodium 100 mg 09/26/23 21:00 09/27/23 09:00 Docusate Sodium 100 Mg Capsule PO 100 mg Q12HR YOLI Administration Fluoxetine HCl 40 mg 09/27/23 09:00 09/27/23 09:00 Fluoxetine Hcl 20 Mg Capsule PO 40 mg DAILY YOLI Administration Cefazolin Sodium 2 gm in 50 mls @ 100 mls/hr 09/26/23 16:00 09/27/23 16:04 Ancef 2 Gm/D5w 50 Ml IVPB Infused Q8H YOLI Infusion Ondansetron HCl 4 mg 09/26/23 12:12 Ondansetron Inj 4 Mg/2 Ml Vial IV PUSH Q8H PRN Nausea And Vomiting Oxybutynin Chloride 5 mg 09/26/23 17:00 09/27/23 15:27 Oxybutynin Chloride 5 Mg Tablet PO 5 mg BID YOLI Administration Oxycodone HCl 5 mg 09/26/23 12:12 Oxycodone Hcl (*Crx) 5 Mg Tab Ir PO Q4H PRN Pain Rated 4-6 Oxycodone HCl 10 mg 09/26/23 12:12 09/27/23 15:33 Oxycodone Hcl (*Crx) 5 Mg Tab Ir PO 10 mg Q4H PRN Administration Pain Rated 7-10 Pravastatin Sodium 20 mg 09/27/23 09:00 09/27/23 09:01 Pravastatin Sodium 20 Mg Tablet PO 20 mg DAILY YOLI Administration Senna/Docusate Sodium 1 tab 09/26/23 12:12 Senna/Docusate Sodium Tablet PO HS PRN Constipation Radiology Results: ITS Impressions Fluoroscopy 09/26/23 15:02 IMPRESSION: 1. Severe lumbar spondylosis.
--- NOTE | 2023-09-27 18:02 | PC.NURSE ---
surgeon removed hemovac at bedside
== END 2023-09-27 18:10 | disposition home or self-care (01) ==
LOC: ANHSURGERY 06:05 → ANH3MEDSUR 14:03
PROVIDERS: PCP Internal Medicine; Visit Provider Neurological Surgery
PROC: (CPT 63005; principal; 2023-09-26 08:30)
DX: M54.16 Radiculopathy, lumbar region (principal); F41.9 Anxiety disorder, unspecified; E78.00 Pure hypercholesterolemia, unspecified; F32.A Depression, unspecified; E66.9 Obesity, unspecified; Z68.35 Body mass index [BMI] 35.0-35.9, adult; Z79.891 Long term (current) use of opiate analgesic; Z98.890 Other specified postprocedural states; Z85.820 Personal history of malignant melanoma of skin; Z80.42 Family history of malignant neoplasm of prostate; Z80.52 Family history of malignant neoplasm of bladder; Z82.49 Family history of ischemic heart disease and other diseases of the circulatory system
CPT/HCPCS: 63047; 63048 ×2; 36415; 80048; 81001; 85027; 85610; 85730; 87086; 87088; 93005; 97161; 97165; 97530; 97535; 99199; A9270; J0330; J0690; J1100; J1170; J1200; J2371; J2405; J2704; J3010; J7120